=== PATIENT | male | born 1985 | race Caucasian/White ===

== ENCOUNTER → 2023-12-20 15:18 | Outpatient (REF) | payer BC, SELFPAY | LOC: DHCBS HW 15:18 | PROVIDERS: ATTENDING PHYSICIAN Internal Medicine Cardiovascular Disease; FAMILY PHYSICIAN Internal Medicine | DX: R00.2 Palpitations (principal) | CPT/HCPCS: 93306 ==

== ENCOUNTER → 2024-01-22 08:13 | Outpatient (REF) | payer BC, SELFPAY | LOC: HWRAD 08:13 | PROVIDERS: ATTENDING PHYSICIAN Internal Medicine | DX: I48.0 Paroxysmal atrial fibrillation (principal) | CPT/HCPCS: 76700 ==

== ENCOUNTER → 2024-02-28 10:36 | Outpatient (REF) | payer BC, SELFPAY | LOC: RCS 10:36 | PROVIDERS: ATTENDING PHYSICIAN Internal Medicine Cardiovascular Disease; FAMILY PHYSICIAN Internal Medicine | DX: R07.89 Other chest pain (principal) | CPT/HCPCS: 93017 ==